=== PATIENT | female | born 1970 | race Caucasian/White ===

== ENCOUNTER 2016-11-04 22:09 | Emergency (ER) | payer OTHER ==
[2016-11-04 22:17] VITALS: TEMP 97.5
--- NOTE | 2016-11-04 22:32 | CPEKG ---
Heart Rate: 90 RR Interval: 667 P-R Interval: 124 QRSD Interval: 86 QT Interval: 360 QTC Interval: 441 P [place]: 72 QRS [place]: 41 T Wave [place]: 26 EKG Severity - NORMAL ECG - EKG Impression: SINUS RHYTHM Electronically Signed By: Caitlyn Martini 05-Nov-2016 08:20:00
--- NOTE | 2016-11-04 22:41 | EDPHY ---
H & P Stated Complaint: CHEST BURNING/HANDS & FEET TINGLING/ SEVERE VOMITING AFTER DRINKING TEA Time Seen by Provider: 11/04/16 22:17 HPI/ROS: HPI The patient presents with chest pain which began at approximately 9:40 p.m. tonight while she was sitting at her computer writing emails. It came on suddenly and was diffuse, described as a burning sensation and lasting for 5 minutes. During this time, she describes tingling of her hands and her feet. She describes this as a sensation that they were asleep. She does believe she was hyperventilating at the time and was trying to control her breathing. She then had multiple episodes of nonbloody nonbilious emesis and subsequently developed diarrhea. This subsided after about 10 minutes and now she feels mostly back to herself, though a little shaky. She is concerned about this chest pain because her brother who was 43 had heart attack this year. She actually has an appointment in 2 days to have a coronary artery CT scan by her primary care doctor for evaluation. REVIEW OF SYSTEMS Constitutional: No fever, no chills. Eyes: No discharge. ENT: No sore throat. Cardiovascular: + chest pain, no palpitations. Respiratory: No cough, no shortness of breath. Gastrointestinal: No abdominal pain, no vomiting. Genitourinary: No hematuria. Musculoskeletal: No back pain. Skin: No rashes. Neurological: No headache. PMHx: Healthy with seasonal allergies and a seafood allergy Soc Hx: Nonsmoker FHx: Brother with IA at 43 PHYSICAL General Appearance: Alert, no distress Eyes: Pupils equal and round no pallor or injection ENT, Mouth: Mucous membranes moist Respiratory: There are no retractions, lungs are clear to auscultation Cardiovascular: Regular rate and rhythm Gastrointestinal: Abdomen is soft and non-tender, no masses, bowel sounds normal Neurological: A&O, moves all extremities Skin: Warm and dry, no rashes Musculoskeletal: Neck is supple non tender Extremities: symmetrical, full range of motion Psychiatric: Patient is oriented X 3, there is no agitation Source: Patient Exam Limitations: No limitations - Personal History LMP (Females 10-55): 1-7 Days Ago Current Tetanus/Diphtheria Vaccine: Yes - Medical/Surgical History Hx Asthma: Yes Hx Chronic Respiratory Disease: No Hx Diabetes: No Hx Cardiac Disease: No Hx Renal Disease: No Hx Cirrhosis: No Hx Alcoholism: No Hx HIV/AIDS: No Hx Splenectomy or Spleen Trauma: No Other PMH: RIGHT KNEE, SEASONAL ALLERGIES WITH ASTHMA - Social History Smoking Status: Never smoked Constitutional: Initial Vital Signs Temperature (C) 36.4 C 11/04/16 22:14 Heart Rate 92 11/04/16 22:14 Respiratory Rate 18 11/04/16 22:14 Blood Pressure 132/98 H 11/04/16 22:14 O2 Sat (%) 98 11/04/16 22:14 O2 Delivery Mode Room Air Allergies/Adverse Reactions: BEE STING Allergy (Uncoded 11/04/16 22:13) sea food Allergy (Uncoded 11/04/16 22:13) seasonal Allergy (Uncoded 11/04/16 22:13) Medical Decision Making - Diagnostics EKG Interpretation: EKG: Complete interpretation has been separately recorded in the [email or web address] archive. Summary impression: Normal sinus rhythm, no signs of ischemia. ED Course/Re-evaluation: 10:30 p.m.- Initial patient encounter. EKG has been performed and is normal. We plan for chest x-ray and labs. Patient is currently asymptomatic. 12:00 a.m.- Patient continues to feel well with no additional symptoms. Labs and studies are all unremarkable. I feel she may have experienced some acid reflux as the cause of her symptoms. I have encouraged her to follow up with her regular doctor as planned and to avoid any spicy or acidic foods for the next few days. Differential Diagnosis: This is a 43-year-old healthy female who presents with chest burning which began about an hour ago and lasted for 5 minutes, with subsequent nausea, vomiting, diarrhea which is now resolved. Differential diagnosis includes ACS, gastritis, viral gastroenteritis, toxin mediated enterocolitis. - Data Points Laboratory Results: Laboratory Results 11/04/16 22:43 11/04/16 22:43 11/04/16 22:43 WBC 7.49 10^3/uL (3.80-9.50) RBC 4.78 10^6/uL (4.18-5.33) Hgb 13.5 g/dL (12.6-16.3) Hct 40.6 % (38.0-47.0) MCV 84.9 fL (81.5-99.8) MCH 28.2 pg (27.9-34.1) MCHC 33.3 g/dL (32.4-36.7) RDW 11.9 % (11.5-15.2) Plt Count 266 10^3/uL (150-400) MPV 10.0 fL (8.7-11.7) Neut % (Auto) 62.3 % (39.3-74.2) Lymph % (Auto) 30.0 % (15.0-45.0) [place] % (Auto) 5.1 % (4.5-13.0) Eos % (Auto) 2.0 % (0.6-7.6) Baso % (Auto) 0.3 % (0.3-1.7) Nucleat RBC Rel Count 0.0 % (0.0-0.2) Absolute Neuts (auto) 4.67 10^3/uL (1.70-6.50) Absolute Lymphs (auto) 2.25 10^3/uL (1.00-3.00) Absolute Monos (auto) 0.38 10^3/uL (0.30-0.80) Absolute Eos (auto) 0.15 10^3/uL (0.03-0.40) Absolute Basos (auto) 0.02 10^3/uL (0.02-0.10) Absolute Nucleated RBC 0.00 10^3/uL (0-0.01) Immature Gran % 0.3 % (0.0-1.1) Immature Gran # 0.02 10^3/uL (0.00-0.10) Sodium 138 mEq/L (134-144) Potassium 3.8 mEq/L (3.5-5.2) Chloride 103 mEq/L (97-110) Carbon Dioxide 25 mEq/l (22-31) Anion Gap 10 mEq/L (8-16) BUN 13 mg/dL (7-23) Creatinine 0.7 mg/dL (0.6-1.0) Estimated GFR > 60 Glucose 97 mg/dL (70-100) Calcium 9.2 mg/dL (8.5-10.4) Troponin I < 0.012 ng/mL (0-0.034) Medications Given: Discontinued Medications Sodium Chloride (Ns) 1,000 mls @ 0 mls/hr IV ONCE ONE PRN Reason: Wide Open Stop: 11/05/16 00:19 Last Admin: 11/04/16 23:20 Dose: 1,000 mls Departure - Departure Disposition: Home, Routine, Self-Care Clinical Impression: Chest pain Qualifiers: Chest pain type: unspecified Qualifier Code: (R07.9) Chest pain, unspecified Nausea & vomiting Qualifiers: Vomiting Intractability: non-intractable Condition: Good Instructions: Chest Pain (ED) Additional Instructions: Please return to the emergency room if your worse in any way. Referrals: Shira Austin MD [Primary Care Provider] - As per Instructions
[2016-11-04 22:56] LABS: % IMMATURE GRANULYOCYTES 0.3 % (0.0-1.1); ABSOLUTE IMMATURE GRANULOCYTES 0.02 10^3/uL (0.00-0.10); ADD DIFF? NO; ADD MORPH? NO; ADD SCAN? NO; ATYPICAL LYMPHOCYTE FLAG 10 (0-99); FRAGMENT RBC FLAG 20 (0-99); HEMATOCRIT 40.6 % (38.0-47.0); HEMOGLOBIN 13.5 g/dL (12.6-16.3); LEFT SHIFT FLG 0 (0-99); LIPEMIA HEMOLYSIS FLAG 80 (0-99); MEAN CELL HEMOGLOBIN 28.2 pg (27.9-34.1); MEAN CELL HEMOGLOBIN CONCENTR. 33.3 g/dL (32.4-36.7); MEAN CELL VOLUME 84.9 fL (81.5-99.8); PLATELET CLUMPS FLAG 10 (0-99); PLATELET COUNT 266 10^3/uL (150-400); RED BLOOD CELL COUNT 4.78 10^6/uL (4.18-5.33); RED CELL DISTRIBUTION WIDTH 11.9 % (11.5-15.2)
--- NOTE | 2016-11-04 23:00 | DX ---
Chest, PA and lateral. HISTORY: Chest pain FINDINGS: Heart size is within normal limits. Pulmonary vascularity appears normal. The lungs are veronika ar. No evidence for pleural effusion or pneumothorax. No significant osseous abnormality. IMPRESSION: Normal chest x-ray.
[2016-11-04 23:07] LABS: ANION GAP 10 mEq/L (8-16); CALCIUM 9.2 mg/dL (8.5-10.4); CARBON DIOXIDE 25 mEq/l (22-31); CHLORIDE 103 mEq/L (97-110); CREATININE 0.7 mg/dL (0.6-1.0); GLOMERULAR FILTRATION RATE > 60; GLUCOSE 97 mg/dL (70-100); POTASSIUM 3.8 mEq/L (3.5-5.2); SODIUM 138 mEq/L (134-144)
[2016-11-04 23:19] LABS: TROPONIN I < 0.012 ng/mL (0-0.034)
[2016-11-05 00:18] VITALS: BP 115/81; PULSE 81; RESP 16; O2SAT 96
[2016-11-05] MEDS ORDERED: NS 1,000 ML IV ONE (00:18)
== END 2016-11-05 00:24 | disposition home or self-care (01) ==
DX: R07.9 Chest pain, unspecified (principal); J45.909 Unspecified asthma, uncomplicated

== ENCOUNTER → 2017-08-03 | Outpatient (CLI) | payer OTHER | LOC: FIMAGING 09:48 | PROVIDERS: ATTEND Obstetrics & Gynecology | DX: Z12.31 Encounter for screening mammogram for malignant neoplasm of breast (principal) | CPT/HCPCS: G0202 ==

== ENCOUNTER → 2018-08-31 | Outpatient (CLI) | payer OTHER | LOC: FIMAGING 16:21 | PROVIDERS: ATTEND Internal Medicine | DX: Z12.31 Encounter for screening mammogram for malignant neoplasm of breast (principal); R92.8 Other abnormal and inconclusive findings on diagnostic imaging of breast; Z80.3 Family history of malignant neoplasm of breast ==

== ENCOUNTER → 2018-09-06 | Outpatient (CLI) | payer OTHER | LOC: BRMIMAGING 09:37 | PROVIDERS: ATTEND Internal Medicine | DX: R92.8 Other abnormal and inconclusive findings on diagnostic imaging of breast (principal) | CPT/HCPCS: 76641-PO ==